=== PATIENT | female | born 1990 | race Caucasian/White ===

== ENCOUNTER 2017-11-28 17:14 | Emergency (ER) | payer OTHER ==
[~2017-11-28] VITALS: Ht 165.1 cm; Wt 86.2 kg
[~2017-11-28 17:14] MED LIST: ANTIDEPRESSANT; ASPIRIN325 PO; HYDROCODONE-AP1 EAC6 PO; PEPCID20 MG PO
[2017-11-28] MEDS ORDERED: NOHOMEMEDICATIONS (17:21)
[2017-11-28] MEDS ORDERED: ROBAXIN 750 MG750 M1 PO (17:57)
[2017-11-28] MEDS ORDERED: IBUPROFEN 800800 M1 PO (17:57)
[2017-11-28 18:15] VITALS: BP 116/56
--- NOTE | 2017-11-29 15:58 | EKG ---
[place] [address] ELECTROCARDIOGRAM REPORT Name: TREY VASQUEZ Room: 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: KAI : 1990 Requested By: Heide Baca Order Number: [id number] MD: Cricket Brown Measurements Intervals [place] Rate: 75 P: 51 UT: 189 QRS: 36 QRSD: 108 T: 34 QT: 364 QTc: 407 Interpretive Statements Sinus rhythm RSR' in V1 or V2, right VCD or RVH Compared to ECG 01/02/2016 18:03:28 Right ventricular hypertrophy now present RSR' in V1 or V2 now present Sinus tachycardia no longer present Incomplete right bundle-branch block no longer present Electronically Signed On 11-29-2017 15:58:31 [employer] ARCHITECT by Cricket Brown [email or web address] <ELECTRONICALLY SIGNED> By: Robbie Brown MD, [facility] 11/29/17 [id number] 1721 Robbie Brown MD, [facility] /EPI
== END 2017-11-28 18:17 | disposition home or self-care (01) ==
LOC: M.ERS 17:14
DX: R07.89 Other chest pain (principal)

== ENCOUNTER → 2019-04-04 | Outpatient (CLI) | payer OTHER ==
[~2019-04-04] MED LIST changes: +IBUPROFEN 800800 M1 PO; +NOHOMEMEDICATIONS; +ROBAXIN 750 MG750 M1 PO
== END ==
LOC: M.ULTRA 13:00
DX: N88.8 Other specified noninflammatory disorders of cervix uteri (principal)

== ENCOUNTER → 2020-12-18 | Outpatient (CLI) | payer OTHER | LOC: M.ULTRA 08:53 | PROVIDERS: ATTEND Nurse Practitioner | DX: R22.1 Localized swelling, mass and lump, neck (principal); R63.5 Abnormal weight gain; L68.9 Hypertrichosis, unspecified; Z83.49 Family history of other endocrine, nutritional and metabolic diseases; F17.200 Nicotine dependence, unspecified, uncomplicated ==